=== PATIENT | male | born 1940 | race Caucasian/White ===

== ENCOUNTER 2021-02-19 05:08 | Inpatient (IN) ==
[2021-02-13 12:40] LABS: Bilirubin,Urine Negative (Negative); Blood, Urine Negative (Negative); Calcium Oxalate Crystals,Urine Few /HPF (Few); Glucose,Urine (UA) Negative (Negative); Hyaline Casts,Urine 8 /LPF (0-3); Ketones,Urine 5 mg/dL (Negative); Mucus,Urine Occasional /LPF (Occasional); Nitrite,Urine Negative (Negative); Protein,Urine Negative; RBC,Urine 3 /HPF (0-4); Squamous Epithelial Cell,Urine Occasional /HPF (0-10); Urine Appearance CLEAR (Clear); Urine Color Yellow (Yellow); Urine Specific Gravity 1.021 (1.001-1.035)
[2021-02-13 12:41] LABS: Basophils # 0.1 10*3/uL (0.0-0.2); Eosinophils # 0.4 10*3/uL (0.0-0.87); Eosinophils % 5.3 % (0.00-10.9); Hematocrit 45.5 VOL% (42.0-52.0); Hemoglobin 14.7 GM/DL (14.0-18.0); Immature Granulocytes % 0.4 %; Immature Granulocytes Absolute 0.03 #; Lymphocytes # 1.9 10*3/uL (1.4-4.0); Lymphocytes % 23.5 % (21.2-54.2); Mean Corpuscular HGB Conc 32.3 GM/DL (32-36); Mean Corpuscular Volume 93.8 FL (87-102); Mean Platelet Volume 10.3 FL (9.6-12.0); Monocytes % 10.7 % (1.7-12.7); Neutrophils % 59.1 % (38.7-73.9); Platelet Count 236 T/CUMM (130-400); Red Blood Count 4.85 MC/CUMM (3.8-5.5); White Blood Count 8.1 T/CUMM (4-12)
[2021-02-13 12:53] LABS: INR 2.3; Partial Thromboplastin Time 37.3 SECS (23.9-33.8)
[2021-02-13 12:56] LABS: PT Patient Result 24.1 SECS (10.5-12.0)
[2021-02-13 13:03] LABS: Albumin 3.9 G/DL (3.4-5.0); Bilirubin,Total 1.3 MG/DL (0.2-1.0); Calcium 9.1 MG/DL (8.5-10.1); Osmolality,Calculated 285.1 MOS/KG (273-304); Potassium 4.4 MMOL/L (3.5-5.1)
[2021-02-19] MEDS ORDERED: VANCOMYCIN INJ 1,000 MG in SODIUM CHLORIDE 0.9% 250 ML IV ONE (06:00)
[2021-02-19] MEDS ORDERED: LACTATED RINGERS 1,000 ML IV SCH (06:30)
[2021-02-19 07:03] LABS: INR 1.7; PT Patient Result 18.1 SECS (10.5-12.0); Partial Thromboplastin Time 32.5 SECS (23.9-33.8)
[2021-02-19] MEDS ORDERED: GABAPENTIN 400 MG CAPSULE PO ONE (07:16)
[2021-02-19] MEDS ORDERED: FAMOTIDINE 20 MG TABLET PO ONE (07:16)
[2021-02-19] MEDS ORDERED: DIAZEPAM 5 MG TABLET PO ONE (07:16)
[2021-02-19] MEDS ORDERED: ACETAMINOPHEN 500 MG TABLET PO ONE (07:16)
[2021-02-19] MEDS ORDERED: MIDAZOLAM 2 MG/2 ML VIAL ONE (07:19)
[2021-02-19] MEDS ORDERED: fentaNYL 100 MCG/2 ML VIAL ONE ×2 (07:19→09:04)
[2021-02-19] MEDS ORDERED: LIDOCAINE 2% 5 ML VIAL ONE (07:21)
[2021-02-19] MEDS ORDERED: propofoL 200 MG/20 ML VIAL IV ONE ×3 (07:21→07:29)
[2021-02-19] MEDS ORDERED: DEXAMETHASONE 4 MG/1 ML VIAL ONE (07:40)
[2021-02-19] MEDS ORDERED: LIDOCAINE 1% 5 ML VIAL ONE (07:40)
[2021-02-19] MEDS ORDERED: ROPIVACAINE 0.5% 30 ML VIAL ONE (07:40)
[2021-02-19] MEDS ORDERED: SUCCINYLCHOLINE 200 MG/10 ML VIAL ONE (07:54)
[2021-02-19] MEDS ORDERED: ROCURONIUM 50 MG/5 ML VIAL IV ONE (07:54)
[2021-02-19] MEDS ORDERED: ETOMIDATE 40 MG/20 ML VIAL IV ONE (07:57)
[2021-02-19] MEDS ORDERED: TEMAZEPAM 7.5 MG CAPSULE PO PRN (08:52)
[2021-02-19] MEDS ORDERED: PROMETHAZINE 25 MG/1 ML VIAL IM PRN (08:52)
[2021-02-19] MEDS ORDERED: MORPHINE 4 MG/1 ML VIAL IV PRN ×2 (08:52→09:02)
[2021-02-19] MEDS ORDERED: ONDANSETRON 4 MG/2 ML VIAL IV PRN ×2 (08:52→10:40)
[2021-02-19] MEDS ORDERED: diphenhydrAMINE CAP 25 MG CAPSULE PO PRN (08:52)
[2021-02-19] MEDS ORDERED: MAGNESIUM HYDROXIDE SUSP 30 ML UDCUP PO PRN (08:52)
[2021-02-19] MEDS ORDERED: PHENYLEPHRINE 1 MG/10 ML SYRINGE IV ONE (08:57)
[2021-02-19] MEDS ORDERED: ESMOLOL 100 MG/10 ML VIAL IV ONE (09:06)
[2021-02-19] MEDS ORDERED: LACTATED RINGERS 1,000 ML IV ONE (09:10)
[2021-02-19] MEDS ORDERED: SODIUM CHLORIDE 0.9% 250 ML IV ONE (09:13)
[2021-02-19] MEDS ORDERED: ONDANSETRON 4 MG/2 ML VIAL ONE (09:23)
[2021-02-19] MEDS ORDERED: NEOSTIGMINE 10 MG/10 ML VIAL ONE (09:24)
[2021-02-19] MEDS ORDERED: GLYCOPYRROLATE 0.4 MG/2 ML VIAL ONE (09:24)
[2021-02-19] MEDS ORDERED: SEVOFLURANE 1 UNIT/15 MINUTE INH ONE (09:45)
[2021-02-19] MEDS ORDERED: HYDROmorphone 2 MG/1 ML VIAL ONE (10:38)
[2021-02-19] MEDS: HYDROmorphone 2 MG/1 ML VIAL IV PRN ×3 (10:43→11:17)
[2021-02-19] MEDS: DOCUSATE SODIUM 100 MG CAPSULE PO SCH ×2 (11:53→20:58)
[2021-02-19] MEDS: ASPIRIN EC 81 MG TABLET PO SCH (11:53)
[2021-02-19] MEDS: LEVOTHYROXINE 50 MCG TABLET PO SCH (11:53)
[2021-02-19] MEDS: ceFAZolin 2,000 MG/50 ML DUPLEX IV SCH ×2 (16:49→23:58)
[2021-02-19] MEDS: DILTIAZEM CD 180 MG CAPSULE PO SCH (20:58)
[2021-02-19] MEDS: lisinopriL 10 MG TABLET PO SCH (20:58)
[2021-02-20 05:25] LABS: Basophils % 0.3 % (0.0-0.8); Eosinophils % 0.2 % (0.00-10.9); Hematocrit 35.7 VOL% (42.0-52.0); Hemoglobin 11.9 GM/DL (14.0-18.0); Immature Granulocytes % 0.4 %; Immature Granulocytes Absolute 0.04 #; Lymphocytes # 1.4 10*3/uL (1.4-4.0); Lymphocytes % 14.1 % (21.2-54.2); Mean Corpuscular HGB Conc 33.3 GM/DL (32-36); Mean Corpuscular Volume 93.2 FL (87-102); Mean Platelet Volume 10.4 FL (9.6-12.0); Monocytes % 17.1 % (1.7-12.7); Neutrophils % 67.9 % (38.7-73.9); Platelet Count 186 T/CUMM (130-400); Red Blood Count 3.83 MC/CUMM (3.8-5.5); Red Cell Distribution Width 13.6 % (9.3-17.3); White Blood Count 9.8 T/CUMM (4-12)
[2021-02-20 05:45] LABS: Atypical Lymphocytes Few; Eosinophils 2 % (0-10); Hypochromasia 1+; Lymphocytes 16 % (20-55); Microcytosis 1+; Platelet Estimate Adequate; Segmented Neutrophils 65 % (50-85); Total Cells Counted 100
[2021-02-20 05:50] LABS: Calcium 8.3 MG/DL (8.5-10.1); Osmolality,Calculated 283.3 MOS/KG (273-304); Potassium 4.1 MMOL/L (3.5-5.1)
[2021-02-20] MEDS: DOCUSATE SODIUM 100 MG CAPSULE PO SCH ×2 (08:57→22:45)
[2021-02-20] MEDS: ASPIRIN EC 81 MG TABLET PO SCH (08:57)
[2021-02-20] MEDS: LEVOTHYROXINE 50 MCG TABLET PO SCH (08:57)
[2021-02-20] MEDS: MULTIVITAMIN (OCUVITE) TABLET PO SCH (08:57)
[2021-02-20] MEDS ORDERED: WARFARIN 4 MG TABLET PO SCH (18:00)
[2021-02-20] MEDS: DILTIAZEM CD 180 MG CAPSULE PO SCH (21:45)
[2021-02-20] MEDS: lisinopriL 10 MG TABLET PO SCH (21:45)
[2021-02-21] MEDS: LEVOTHYROXINE 50 MCG TABLET PO SCH (08:59)
[2021-02-21] MEDS: DOCUSATE SODIUM 100 MG CAPSULE PO SCH ×2 (08:59→21:16)
[2021-02-21] MEDS: MULTIVITAMIN (OCUVITE) TABLET PO SCH (08:59)
[2021-02-21] MEDS: ASPIRIN EC 81 MG TABLET PO SCH (08:59)
[2021-02-21] MEDS ORDERED: WARFARIN 3 MG TABLET PO SCH (18:00)
[2021-02-21] MEDS: lisinopriL 10 MG TABLET PO SCH (21:16)
[2021-02-21] MEDS: DILTIAZEM CD 180 MG CAPSULE PO SCH (21:16)
[2021-02-22 05:37] LABS: INR 1.2; PT Patient Result 13.5 SECS (10.5-12.0)
[2021-02-22] MEDS: ASPIRIN EC 81 MG TABLET PO SCH (08:21)
[2021-02-22] MEDS: DOCUSATE SODIUM 100 MG CAPSULE PO SCH (08:21)
[2021-02-22] MEDS: MULTIVITAMIN (OCUVITE) TABLET PO SCH (08:22)
[2021-02-22] MEDS: LEVOTHYROXINE 50 MCG TABLET PO SCH (08:22)
[2021-02-22 11:16] VITALS: BP 145/55
[2021-02-25] MEDS ORDERED: WARFARIN 4 MG TABLET PO SCH (18:00)
== END 2021-02-22 13:21 | disposition swing bed (61) | DRG 470 ==
LOC: N.OR 05:08 → N.SDSINP 05:10 → N.3E 18:12
PROVIDERS: ADMIT Orthopaedic Surgery; ATTEND Orthopaedic Surgery